=== PATIENT | male | born 1975 | race Caucasian/White ===

== ENCOUNTER → 2024-05-11 06:21 | Day surgery (SDC) | payer OTHER, SELFPAY | LOC: GI 06:21 | PROVIDERS: ATTENDING PHYSICIAN Internal Medicine Gastroenterology | DX: K63.5 Polyp of colon (principal); K57.30 Diverticulosis of large intestine without perforation or abscess without bleeding; D12.8 Benign neoplasm of rectum; R19.4 Change in bowel habit | CPT/HCPCS: 45385; 88305 ==

== ENCOUNTER 2025-08-04 11:02 | Inpatient (IN) | payer OTHER, SELFPAY ==
[2025-08-04] VITALS (17 sets, daily range): BP systolic 122–156; BP diastolic 56–116; BMI 28.6; BMI 28.1; BMI 27.8
--- NOTE | 2025-08-04 00:36 | EDRN ---
Pt had heartburn which turned into tightness in his chest while lying in bed. Pt noted pain in posterior neck and L calf. Symptoms started around [id number]. Chest pain was intermittent and is gone now. Pain has 'slight' pain in posterior neck
now. L calf is dull pain. Pt took Tums which did not help and drank a lot of water. Dinner was turkey with 'all the fixings' and 2 glasses wine. No sob, n/v, fever/chills/cough, abd pain, constipation. Pt said when he went down the steps he
felt dizzy. Pt's adds pt complained of abd pain around 2229 - no abd pain now. Pt had diarrhea yesterday.
--- NOTE | 2025-08-04 00:54 | ED.GENMED ---
History of Present Illness
<Hima Cano PA-C - Last Filed: 08/04/25 02:21>
General
Chief Complaint: Chest Pain
Source: patient
Exam Limitations: none
Time Seen by Provider: 08/04/25 00:43
History of Present Illness
History of Present Illness:
50-year-old male with history of hyperlipidemia presents with onset of chest discomfort this evening. It was after eating dinner. He felt that it was heartburn. He then developed pain in his neck. This was different than his typical heartburn
sensation. Tried drinking water and taking 4 Tums without significant relief. He also noted an unsettled sensation in his stomach. There was no vomiting or diaphoresis. He notes a family history of cardiac disease. No recent extended travel.
No other complaints. He states at the moment he feels somewhat improved
Past History
<Hima Cano PA-C - Last Filed: 08/04/25 02:21>
Past History
ED Past Medical History: None
ED Past Surgical History: None
Social History
Tobacco: Non-smoker
Alcohol: Occasional
Personal:
Living: with family
Phy Exam
<Hima Cano PA-C - Last Filed: 08/04/25 02:21>
Physical Exam
Physical Exam:
General: Well-appearing male no acute respiratory distress
HEENT: Normal cephalic atraumatic
Heart: Regular rate and rhythm
Lungs: Clear no wheeze
Abdomen is soft nontender
Extremities: No cyanosis
Scores
<Eliazar Jeronimo MD - Last Filed: 08/04/25 13:37>
Heart Score for Chest Pain Patients
STEMI patient?: No
History: Slightly or Non-Suspicious
ECG: Normal
Age: >45 - <65 years
Risk Factors: 1 or 2 Risk Factors
Troponin: </= Normal Limit
Heart Score for Chest Pain Patients: 2
Heart Score Risk: 2.5% MACE over next 6 weeks
Course
Miguellt;Hima Cano PA-C - Last Filed: 08/04/25 02:21>
Orders/Labs/Results
Orders:
Orders
08/04/25 00:18
EKG [Electrocardiogram (*1)] Urgent
Reason for Study: Chest Pain
EKG- Treatment ONCE
08/04/25 00:40
Cardiac Monitoring- Treatment ONCE
IV Insert/Care/Rem.- Treatment PRN
O2 Therapy [RESP] Urgent
Titrate/Wean O2 to maintain O2 sat greater than (%): 90
Special Instructions: Maintain sats >/=90%
Pulse Ox/spot Check [RESP] Urgent
Quantity: 1
Special Instructions: ON ROOM AIR
08/04/25 00:47
Complete Blood Count/With Diff Urgent
Comprehensive Metabolic Panel Urgent
Lipase Urgent
Troponin I Urgent
08/04/25 00:53
CR Chest - 2 Views Urgent
Comment:
Reason For Exam: chest pain
08/04/25 01:41
US Abdomen Complete/Upper Urgent
Comment:
Reason For Exam: abdominal pain
08/04/25 02:31
Troponin I Urgent
08/04/25 03:54
Nitroglycerin Sublingual [Nitrostat (Sublingual)] 0.4 mg SL NOW STA
08/04/25 04:07
Hepatitis A IgM Antibody Urgent
Hepatitis B Core Ab, IgM Urgent
Hepatitis B Surface Antibody Urgent
Hepatitis B Surface Antigen Urgent
Hepatitis C Antibody Urgent
08/04/25 Breakfast
Clear Liquid
At Your Request: Full Participation
08/04/25 06:30
Electrocardiogram (*1) Urgent
Reason for Study: Chest Pain
EKG- Treatment ONCE
08/04/25 06:31
Troponin I Urgent
08/04/25 06:52
Aspirin Chewable [Low Strength Aspirin] 324 mg PO NOW STA
08/04/25 06:56
CARDIOLOGY CONSULT Urgent
Consulting Provider: Bryan Adams
Was physician already notified: Yes
Reason for consult: chest pain
Heparin 4,000 units IV NOW STA
Nursing to Place Non Medication Order As Directed
Physician Order: PTT 6 hours after initial start of Heparin infusion
Above order entered?: Yes
08/04/25 07:00
Heparin 40119 Units/250 ml 25,000 units in 250 ml IV PER PROTOCOL
Weight to be used for heparin protocol in kilograms (kg):: 78
Protocol:: Cardiac Tx/Acute Coronary
PTT Goal Range to be used:: PTT 73 to 111 seconds
Order type:: Initial
INITIAL Infusion Dose (UNITS/KG/hr) & then follow protocol:: 12 units/kg/hr
Infusion Dose in UNITS/hr & then follow protocol (UNITS/hr):: 950
INFUSION RATE in mL/hr & then follow protocol (mL/hr):: 9.5
PTT less than or equal to 64 seconds:: Increase rate by 200 units/hr (+ 2 mL/hr)
PTT 64.1 to 72.9 seconds:: Increase rate by 100 units/hr (+ 1 mL/hr)
PTT 73 to 111 seconds:: Target Range. No change in rate.
PTT 111.1 to 130.9 seconds:: Decrease rate by 100 units/hr (- 1 mL/hr)
PTT 131 to 199.9 seconds:: HOLD for 1 hr. Then decrease rate by 200 units/hr (- 2 mL/hr)
PTT greater than or equal to 200 seconds:: HOLD for 2 hrs & Notify Provider. Then decrease by 200 units/hr (-
2 mL/hr)
Lab follow-up:: Each change, PTT q6h until 2 consecutive are therapeutic. Then PTT
daily.
08/04/25 07:01
PTT Urgent
Comment: Obtain baseline before beginning heparin infusion if not already collected
Prothrombin Time Urgent
Comment: ADD ON
08/04/25 07:03
Heparin [id number] Units/250 ml 25,000 units in 250 ml .ROUTE .STK-MED
08/04/25 07:48
Echo 2D MMode Color/Doppler Routine
Reason for Study: Chest pain
08/04/25 09:54
Pantoprazole [Protonix IV] 40 mg IV NOW STA
08/04/25 10:39
Add On- LAB Urgent
Tests Added?: INR
08/04/25 10:42
GASTROINTESTINAL CONSULT Routine
Consulting Provider: Carmelo Merritt
Was physician already notified: Yes
08/04/25 10:53
Admit/Transfer Patient As Directed
Co-Sign Provider:
Level of Care: Inpatient admission
Assign to:: Telemetry
Physician / Group: gris alvarez
Diagnosis: transaminitis/chest pain
Reason for Telemetry: Chest Pain syndromes
Date to Stop Telemetry: 08/06/25
Time to Stop Telemetry: 11:00
Reason for Hospitalization: chest pain
transaminitis
Expected length of stay greater than two midnights?: Yes
ELOS- Estimated Length of Stay in days: 2
I certify the patient meets the requirements for IP care: Yes
PRN Pain Medication Management As Directed
May give lesser potent ordered pain med per pt: Yes
preference::
Protocol:: Medication orders for pain may be administered in a
manner that supports deferring to patient preference
when the pt is:
- Requesting an ordered lesser potent pain medication.
Least to most potent pain medications are defined
as: acetaminophen < NSAID < tramadol < opioids
(morphine, oxycodone, hydromorphone).
- Requesting a lesser dose of the same medication IF
ORDERED.
- Requesting a less intrusive route of administration
if both routes are prescribed by the provider (PO <
IV).
08/04/25 10:55
Code Status As Directed
Resuscitation Status: Full Code
08/04/25 12:06
Bisacodyl [Dulcolax] 10 mg RECTAL [id number] PRN
Docusate W/Senna [Senokot-S] 1 tablet PO BIDPRN PRN
Polyethylene Glycol Powder [Miralax] 17 grams PO DAILYPRN PRN
08/04/25 12:06
Activity As Directed
Activity Level: As Tolerated
Vital Signs As Directed
Frequency: Per unit guidelines
DX Deep Vein Thrombosis Video Routine
08/05/25 06:00
Complete Blood Count/No Diff IN AM
Comprehensive Metabolic Panel IN AM
08/06/25 11:00
DC Protocol for Telemetry ONCE
Abnormal Lab Results
08/04/25
00:47
RDW 11.1 L %
(11.5-14.5)
Abs Immat Gran (auto) 0.1 H 10^3/uL
(0-0.05)
Immature Gran % 1.1 H %
(0-0.5)
Glucose 102 H mg/dl
(70-99)
Calcium 10.4 H mg/dl
(8.4-10.2)
AST 529 H* U/L
(17-59)
ALT 288 H U/L
(0-50)
08/04/25 00:47
08/04/25 00:47
Vital Signs
Initial and Last Documented VS:
Initial Vital Signs
Temp Pulse Resp BP Pulse Ox
97.7 F 96 18 156/116 96
08/04/25 00:12 08/04/25 00:12 08/04/25 00:12 08/04/25 00:12 08/04/25 00:12
Last Documented Vital Signs
Temp Pulse Resp BP Pulse Ox
98 F 66 17 139/95 100
08/04/25 12:35 08/04/25 12:35 08/04/25 12:35 08/04/25 12:35 08/04/25 12:35
<Eliazar Jeronimo MD - Last Filed: 08/04/25 13:37>
Orders/Labs/Results
Orders:
Orders
08/04/25 00:18
EKG [Electrocardiogram (*1)] Urgent
Reason for Study: Chest Pain
EKG- Treatment ONCE
08/04/25 00:40
Cardiac Monitoring- Treatment ONCE
IV Insert/Care/Rem.- Treatment PRN
O2 Therapy [RESP] Urgent
Titrate/Wean O2 to maintain O2 sat greater than (%): 90
Special Instructions: Maintain sats >/=90%
Pulse Ox/spot Check [RESP] Urgent
Quantity: 1
Special Instructions: ON ROOM AIR
08/04/25 00:47
Complete Blood Count/With Diff Urgent
Comprehensive Metabolic Panel Urgent
Lipase Urgent
Troponin I Urgent
08/04/25 00:53
CR Chest - 2 Views Urgent
Comment:
Reason For Exam: chest pain
08/04/25 01:41
US Abdomen Complete/Upper Urgent
Comment:
Reason For Exam: abdominal pain
08/04/25 02:31
Troponin I Urgent
08/04/25 03:54
Nitroglycerin Sublingual [Nitrostat (Sublingual)] 0.4 mg SL NOW STA
08/04/25 04:07
Hepatitis A IgM Antibody Urgent
Hepatitis B Core Ab, IgM Urgent
Hepatitis B Surface Antibody Urgent
Hepatitis B Surface Antigen Urgent
Hepatitis C Antibody Urgent
08/04/25 Breakfast
Clear Liquid
At Your Request: Full Participation
08/04/25 06:30
Electrocardiogram (*1) Urgent
Reason for Study: Chest Pain
EKG- Treatment ONCE
08/04/25 06:31
Troponin I Urgent
08/04/25 06:52
Aspirin Chewable [Low Strength Aspirin] 324 mg PO NOW STA
08/04/25 06:56
CARDIOLOGY CONSULT Urgent
Consulting Provider: Bryan Adams
Was physician already notified: Yes
Reason for consult: chest pain
Heparin 4,000 units IV NOW STA
Nursing to Place Non Medication Order As Directed
Physician Order: PTT 6 hours after initial start of Heparin infusion
Above order entered?: Yes
08/04/25 07:00
Heparin [id number] Units/250 ml 25,000 units in 250 ml IV PER PROTOCOL
Weight to be used for heparin protocol in kilograms (kg):: 78
Protocol:: Cardiac Tx/Acute Coronary
PTT Goal Range to be used:: PTT 73 to 111 seconds
Order type:: Initial
INITIAL Infusion Dose (UNITS/KG/hr) & then follow protocol:: 12 units/kg/hr
Infusion Dose in UNITS/hr & then follow protocol (UNITS/hr):: 950
INFUSION RATE in mL/hr & then follow protocol (mL/hr):: 9.5
PTT less than or equal to 64 seconds:: Increase rate by 200 units/hr (+ 2 mL/hr)
PTT 64.1 to 72.9 seconds:: Increase rate by 100 units/hr (+ 1 mL/hr)
PTT 73 to 111 seconds:: Target Range. No change in rate.
PTT 111.1 to 130.9 seconds:: Decrease rate by 100 units/hr (- 1 mL/hr)
PTT 131 to 199.9 seconds:: HOLD for 1 hr. Then decrease rate by 200 units/hr (- 2 mL/hr)
PTT greater than or equal to 200 seconds:: HOLD for 2 hrs & Notify Provider. Then decrease by 200 units/hr (-
2 mL/hr)
Lab follow-up:: Each change, PTT q6h until 2 consecutive are therapeutic. Then PTT
daily.
08/04/25 07:01
PTT Urgent
Comment: Obtain baseline before beginning heparin infusion if not already collected
Prothrombin Time Urgent
Comment: ADD ON
08/04/25 07:03
Heparin 53544 Units/250 ml 25,000 units in 250 ml .ROUTE .STK-MED
08/04/25 07:48
Echo 2D MMode Color/Doppler Routine
Reason for Study: Chest pain
08/04/25 09:54
Pantoprazole [Protonix IV] 40 mg IV NOW STA
08/04/25 10:39
Add On- LAB Urgent
Tests Added?: INR
08/04/25 10:42
GASTROINTESTINAL CONSULT Routine
Consulting Provider: Carmelo Merritt
Was physician already notified: Yes
08/04/25 10:53
Admit/Transfer Patient As Directed
Co-Sign Provider:
Level of Care: Inpatient admission
Assign to:: Telemetry
Physician / Group: gris alvarez
Diagnosis: transaminitis/chest pain
Reason for Telemetry: Chest Pain syndromes
Date to Stop Telemetry: 08/06/25
Time to Stop Telemetry: 11:00
Reason for Hospitalization: chest pain
transaminitis
Expected length of stay greater than two midnights?: Yes
ELOS- Estimated Length of Stay in days: 2
I certify the patient meets the requirements for IP care: Yes
PRN Pain Medication Management As Directed
May give lesser potent ordered pain med per pt: Yes
preference::
Protocol:: Medication orders for pain may be administered in a
manner that supports deferring to patient preference
when the pt is:
- Requesting an ordered lesser potent pain medication.
Least to most potent pain medications are defined
as: acetaminophen < NSAID < tramadol < opioids
(morphine, oxycodone, hydromorphone).
- Requesting a lesser dose of the same medication IF
ORDERED.
- Requesting a less intrusive route of administration
if both routes are prescribed by the provider (PO <
IV).
08/04/25 10:55
Code Status As Directed
Resuscitation Status: Full Code
08/04/25 12:06
Bisacodyl [Dulcolax] 10 mg RECTAL [id number] PRN
Docusate W/Senna [Senokot-S] 1 tablet PO BIDPRN PRN
Polyethylene Glycol Powder [Miralax] 17 grams PO DAILYPRN PRN
08/04/25 12:06
Activity As Directed
Activity Level: As Tolerated
Vital Signs As Directed
Frequency: Per unit guidelines
DX Deep Vein Thrombosis Video Routine
08/05/25 06:00
Complete Blood Count/No Diff IN AM
Comprehensive Metabolic Panel IN AM
08/06/25 11:00
DC Protocol for Telemetry ONCE
Abnormal Lab Results
08/04/25
00:47
RDW 11.1 L %
(11.5-14.5)
Abs Immat Gran (auto) 0.1 H 10^3/uL
(0-0.05)
Immature Gran % 1.1 H %
(0-0.5)
Glucose 102 H mg/dl
(70-99)
Calcium 10.4 H mg/dl
(8.4-10.2)
AST 529 H* U/L
(17-59)
ALT 288 H U/L
(0-50)
08/04/25 00:47
08/04/25 00:47
Vital Signs
Initial and Last Documented VS:
Initial Vital Signs
Temp Pulse Resp BP Pulse Ox
97.7 F 96 18 156/116 96
08/04/25 00:12 08/04/25 00:12 08/04/25 00:12 08/04/25 00:12 08/04/25 00:12
Last Documented Vital Signs
Temp Pulse Resp BP Pulse Ox
98 F 66 17 139/95 100
08/04/25 12:35 08/04/25 12:35 08/04/25 12:35 08/04/25 12:35 08/04/25 12:35
<Itzel Butler, DO - Last Filed: 08/04/25 09:54>
Orders/Labs/Results
Orders:
Orders
08/04/25 00:18
EKG [Electrocardiogram (*1)] Urgent
Reason for Study: Chest Pain
EKG- Treatment ONCE
08/04/25 00:40
Cardiac Monitoring- Treatment ONCE
IV Insert/Care/Rem.- Treatment PRN
O2 Therapy [RESP] Urgent
Titrate/Wean O2 to maintain O2 sat greater than (%): 90
Special Instructions: Maintain sats >/=90%
Pulse Ox/spot Check [RESP] Urgent
Quantity: 1
Special Instructions: ON ROOM AIR
08/04/25 00:47
Complete Blood Count/With Diff Urgent
Comprehensive Metabolic Panel Urgent
Lipase Urgent
Troponin I Urgent
08/04/25 00:53
CR Chest - 2 Views Urgent
Comment:
Reason For Exam: chest pain
08/04/25 01:41
US Abdomen Complete/Upper Urgent
Comment:
Reason For Exam: abdominal pain
08/04/25 02:31
Troponin I Urgent
08/04/25 03:54
Nitroglycerin Sublingual [Nitrostat (Sublingual)] 0.4 mg SL NOW STA
08/04/25 04:07
Hepatitis A IgM Antibody Urgent
Hepatitis B Core Ab, IgM Urgent
Hepatitis B Surface Antibody Urgent
Hepatitis B Surface Antigen Urgent
Hepatitis C Antibody Urgent
08/04/25 Breakfast
Clear Liquid
At Your Request: Full Participation
08/04/25 06:30
Electrocardiogram (*1) Urgent
Reason for Study: Chest Pain
EKG- Treatment ONCE
08/04/25 06:31
Troponin I Urgent
08/04/25 06:52
Aspirin Chewable [Low Strength Aspirin] 324 mg PO NOW STA
08/04/25 06:56
CARDIOLOGY CONSULT Urgent
Consulting Provider: Bryan Adams
Was physician already notified: Yes
Reason for consult: chest pain
Heparin 4,000 units IV NOW STA
Nursing to Place Non Medication Order As Directed
Physician Order: PTT 6 hours after initial start of Heparin infusion
Above order entered?: Yes
08/04/25 07:00
Heparin [id number] Units/250 ml 25,000 units in 250 ml IV PER PROTOCOL
Weight to be used for heparin protocol in kilograms (kg):: 78
Protocol:: Cardiac Tx/Acute Coronary
PTT Goal Range to be used:: PTT 73 to 111 seconds
Order type:: Initial
INITIAL Infusion Dose (UNITS/KG/hr) & then follow protocol:: 12 units/kg/hr
Infusion Dose in UNITS/hr & then follow protocol (UNITS/hr):: 950
INFUSION RATE in mL/hr & then follow protocol (mL/hr):: 9.5
PTT less than or equal to 64 seconds:: Increase rate by 200 units/hr (+ 2 mL/hr)
PTT 64.1 to 72.9 seconds:: Increase rate by 100 units/hr (+ 1 mL/hr)
PTT 73 to 111 seconds:: Target Range. No change in rate.
PTT 111.1 to 130.9 seconds:: Decrease rate by 100 units/hr (- 1 mL/hr)
PTT 131 to 199.9 seconds:: HOLD for 1 hr. Then decrease rate by 200 units/hr (- 2 mL/hr)
PTT greater than or equal to 200 seconds:: HOLD for 2 hrs & Notify Provider. Then decrease by 200 units/hr (-
2 mL/hr)
Lab follow-up:: Each change, PTT q6h until 2 consecutive are therapeutic. Then PTT
daily.
08/04/25 07:01
PTT Urgent
Comment: Obtain baseline before beginning heparin infusion if not already collected
Prothrombin Time Urgent
Comment: ADD ON
08/04/25 07:03
Heparin [id number] Units/250 ml 25,000 units in 250 ml .ROUTE .STK-MED
08/04/25 07:48
Echo 2D MMode Color/Doppler Routine
Reason for Study: Chest pain
08/04/25 09:54
Pantoprazole [Protonix IV] 40 mg IV NOW STA
08/04/25 10:39
Add On- LAB Urgent
Tests Added?: INR
08/04/25 10:42
GASTROINTESTINAL CONSULT Routine
Consulting Provider: Carmelo Merritt
Was physician already notified: Yes
08/04/25 10:53
Admit/Transfer Patient As Directed
Co-Sign Provider:
Level of Care: Inpatient admission
Assign to:: Telemetry
Physician / Group: gris alvarez
Diagnosis: transaminitis/chest pain
Reason for Telemetry: Chest Pain syndromes
Date to Stop Telemetry: 08/06/25
Time to Stop Telemetry: 11:00
Reason for Hospitalization: chest pain
transaminitis
Expected length of stay greater than two midnights?: Yes
ELOS- Estimated Length of Stay in days: 2
I certify the patient meets the requirements for IP care: Yes
PRN Pain Medication Management As Directed
May give lesser potent ordered pain med per pt: Yes
preference::
Protocol:: Medication orders for pain may be administered in a
manner that supports deferring to patient preference
when the pt is:
- Requesting an ordered lesser potent pain medication.
Least to most potent pain medications are defined
as: acetaminophen < NSAID < tramadol < opioids
(morphine, oxycodone, hydromorphone).
- Requesting a lesser dose of the same medication IF
ORDERED.
- Requesting a less intrusive route of administration
if both routes are prescribed by the provider (PO <
IV).
08/04/25 10:55
Code Status As Directed
Resuscitation Status: Full Code
08/04/25 12:06
Bisacodyl [Dulcolax] 10 mg RECTAL [id number] PRN
Docusate W/Senna [Senokot-S] 1 tablet PO BIDPRN PRN
Polyethylene Glycol Powder [Miralax] 17 grams PO DAILYPRN PRN
08/04/25 12:06
Activity As Directed
Activity Level: As Tolerated
Vital Signs As Directed
Frequency: Per unit guidelines
DX Deep Vein Thrombosis Video Routine
08/05/25 06:00
Complete Blood Count/No Diff IN AM
Comprehensive Metabolic Panel IN AM
08/06/25 11:00
DC Protocol for Telemetry ONCE
Abnormal Lab Results
08/04/25
00:47
RDW 11.1 L %
(11.5-14.5)
Abs Immat Gran (auto) 0.1 H 10^3/uL
(0-0.05)
Immature Gran % 1.1 H %
(0-0.5)
Glucose 102 H mg/dl
(70-99)
Calcium 10.4 H mg/dl
(8.4-10.2)
AST 529 H* U/L
(17-59)
ALT 288 H U/L
(0-50)
08/04/25 00:47
08/04/25 00:47
Vital Signs
Initial and Last Documented VS:
Initial Vital Signs
Temp Pulse Resp BP Pulse Ox
97.7 F 96 18 156/116 96
08/04/25 00:12 08/04/25 00:12 08/04/25 00:12 08/04/25 00:12 08/04/25 00:12
Last Documented Vital Signs
Temp Pulse Resp BP Pulse Ox
98 F 66 17 139/95 100
08/04/25 12:35 08/04/25 12:35 08/04/25 12:35 08/04/25 12:35 08/04/25 12:35
<Hima Cano PA-C - Last Filed: 08/04/25 02:21>
MDM/Problems Addressed
Differential Diagnosis Includes:
Chest pain. Consider ACS versus reflux. Symptoms are improving. Unlikely to be PE or dissection.
EKG shows sinus rhythm without ischemic changes. Will check labs including troponin. Chest x-ray pending
<Hima Cano PA-C - Last Filed: 08/04/25 02:21>
*Pulse Oximetry
SaO2: 96
Oxygen Mode of Delivery: Room air
<Eliazar Jeronimo MD - Last Filed: 08/04/25 13:37>
*Pulse Oximetry
Patient hypoxic: no
*Critical Care Note
Total Time (30-74mins, 75-104mins- exclusive of procedures): Not Applicable
<Hima Cano PA-C - Last Filed: 08/04/25 02:21>
Update Note
Update Note:
LFTs elevated. Will order ultrasound of abdomen. Repeat troponin pending
<Itzel Butler DO - Last Filed: 08/04/25 09:54>
Update Note
Update Note:
LFTs elevated. Will order ultrasound of abdomen. Repeat troponin pending
Attending Sign Out Note (Itzel Butler DO)
7:30 -assuming care of patient, 50-year-old male with history of hyperlipidemia presenting to the emergency department for burning sensation in his chest. Notes started after eating dinner last evening. No personal cardiac history, however strong
family cardiac history. Reassuring workup thus far in the emergency department with nonischemic EKG, negative troponin x 2. Thought for likely reflux etiology. Noted to have some elevation of LFTs, some right upper quadrant ultrasound obtained,
unremarkable. Chest x-ray without acute cardiopulmonary disease. However given patient's age, risk factors, family history, cardiology consulted and will evaluate in the emergency department for ultimate disposition.
09:50 -cardiology did see and evaluate patient, less suspicious for cardiac pathology. They suspect more GI, given acute bump in liver enzymes. Recommending admission for GI consultation. They will also obtain echocardiogram. Patient agreeable
to plan.
ED Attending Note
<Hima Cano PA-C - Last Filed: 08/04/25 02:21>
-
Portions of this chart may have been created with voice recognition software.� Occasional wrong word or��sound alike� substitutions may have occurred due to the inherent limitations of voice recognition software.
<Eliazar Jeronimo MD - Last Filed: 08/04/25 13:37>
ED Attending Note
Patient seen and examined by attending physician: Yes
ED Attending Note:
Patient with history of hypercholesterolemia, presents to ED secondary to persistent chest pain, and approximately 2 hours after having had thanksgiving dinner consisting of turkey and slight dizziness. Patient does also admit to having had couple
glass of wine, which is not unusual for the patient. Chest pain described as burning sensation, with radiation to neck. Patient initially thought he was experiencing reflux symptoms, which he has had previously. Patient proceeded to drink water,
walk around, and take Tums, which has worked in the past. Unfortunately, his chest burning sensation continued, prompting visit to ED. Denies dizziness. Denies diaphoresis. Patient reports nausea sensation without vomiting. Denies back pain.
Denies leg pain or swelling. Denies recent travel or surgery. Denies smoking. Of note, there is strong family history of heart disease, with multiple family numbers having had heart attack in early 50s.
Physical Exam
General: no apparent distress, not acutely ill. afebrile
Head: nc/at. eomi
Neck: supple. normal range of motion.
Heart: s1/s2 regular rate and rhythm
Lungs: no acute respiratory distress. clear bilaterally
Abdomen: normal bowel sounds. not tender.
Neuro: alert and oriented x 3. no focal neurological deficits
Skin: no rash
Psychiatric: well kept. interactive and cooperative
Extremities: no edema. no calf tenderness.
Patient with minimal troponin noted, without acute EKG changes. Patient given nitroglycerin sublingual tablet without improvement in symptoms. In light of patient's strong family history heart disease, along with ongoing symptoms, will consult
cardiology for an evaluation.
Discussed with on-call cardiology, Dr. Adams, who recommends patient to be started on aspirin along with heparin protocol. Will come and evaluate patient in ED.
Discharge Plan
Departure
Patient Disposition: Admit
Date of Disposition: 08/04/25
Time of Disposition: 09:57
Presentation/result/management discussed w/ accepting MD/DO: Hospitalist
Patient with high blood pressure during this ER visit?: No
Condition: Fair
Discharge Problem:
Chest pain, mid sternal, Transaminitis
Interventions
Interventions:
*Risk Screen - Suicide Last Done: 08/04/25 00:14
*General Assessment Last Done: 08/04/25 00:14
*Neglect/Abuse Screening Last Done: 08/04/25 00:14
*ED- Fall Risk Assessment Last Done: 08/04/25 00:14
*ED COVID-19 Vaccine History Last Done: 08/04/25 00:14
*ED Influenza Vaccine History Last Done: 08/04/25 00:14
*Nursing Disposition Last Done: 08/04/25 12:06
ED- Cardiac Assessment Last Done: 08/04/25 07:21
Discharge Date and Time
Discharge Date/Time: 08/04/25 12:07
[2025-08-04 00:55] LABS: Hematocrit 42.7 % (39.0-52.0); Hemoglobin 15.5 g/dL (13.0-18.0); Mean Corp Hgb Conc. 36.3 g/dL (33.0-37.0); Mean Corpuscular Volume 85.1 fL (80.0-94.0); Nucleated Red Blood Cells % 0 % (-); Platelet Count 183 10^3/uL (130-400); Red Cell Dist. Width 11.1 % (11.5-14.5)
[2025-08-04 01:27] LABS: Troponin I 0.016 ng/ml
[2025-08-04 01:33] LABS: ALT (SGPT) 288 U/L (0-50); AST (SGOT) 529 U/L (17-59); Albumin 4.6 g/dl (3.5-5.0); Alkaline Phosphatase 90 U/L (38-126); Blood Urea Nitrogen 19 mg/dl (9-20); Calcium 10.4 mg/dl (8.4-10.2); Carbon Dioxide 28 mmol/L (22-30); Chloride 105 mmol/L (98-107); Estimated Creatinine Clearance 84 ml/min; Glucose 102 mg/dl (70-99); Lipase 263 U/L (23-300); Potassium 4.0 mmol/L (3.5-5.1); Sodium 138 mmol/L (135-145); Total Protein 7.4 g/dl (6.3-8.2); eGFR > 60.00
[2025-08-04 03:12] LABS: Troponin I 0.018 ng/ml
[2025-08-04] MEDS: NITROSTAT (SUBLINGUAL) 0.4 MG SL (04:12)
[2025-08-04 05:29] LABS: Hepatitis B Surface Antigen Negative (Negative)
[2025-08-04 05:46] LABS: Hepatitis C Antibody Negative (Negative)
[2025-08-04] MEDS: LOW STRENGTH ASPIRIN 324 MG PO (06:57)
--- NOTE | 2025-08-04 07:03 | EDRN ---
Called pharmacy to verify heparin
[2025-08-04] MEDS: HEPARIN 4000 UNITS IV (07:07)
[2025-08-04] MEDS: HEPARIN 25000 UNITS/250 ML IV (07:12)
[2025-08-04 07:40] LABS: APTT 25.1 Sec (23.4-35.0)
[2025-08-04 07:51] LABS: Troponin I 0.016 ng/ml
--- NOTE | 2025-08-04 08:58 | CON.CAR ---
Addendum entered and electronically signed by Bryan Adams MD 08/04/25 09:54:
I reviewed and agree with the note by NADEEN and it accurately reflects our care.
I saw and evaluated the patient, and I provided the substantive portion of the medical decision making. My assessment and plan is below:
50-year-old man with hyperlipidemia and family history of coronary artery disease who presents with epigastric discomfort. Patient reports that for the past week he has had abdominal distention and diarrhea. Yesterday developed what felt like
heartburn. Took Tums but it did not fully resolve and then started radiating to his neck and bilateral legs. Came to the ER and epigastric discomfort is still present. He is a never smoker. Drinks 2 alcoholic drinks daily. He is fairly active
and denies dyspnea or chest discomfort with exertion.
Physical exam: RRR, no murmurs, clear lungs, no lower extremity edema, abdomen nontender to palpation
Labs notable for troponin 0.016 -> 0.018 -> 0.016, AST/ALT 529/288
ECG: NSR, within normal limits
Epigastric discomfort: Suspect noncardiac etiology as it has been ongoing for almost 12 hours with negative troponin x 3, completely normal ECG, and no improvement with SL nitro. Follow-up echocardiogram. Stop trending troponins. Should have
outpatient stress testing. Recommend GI evaluation of transaminitis.
Original Note:
Consultation
Consultation Request
Date/Time Consultation Requested: 08/04/2025 06:00
Date/Time Consultation Performed: 08/04/2025 08:45
Requesting Provider: Hima Cano PA-C
Performing Provider: NADEEN Ybarra for Dr. Adams
Reason for Consultation: Chest pain
Medical History
-
Chief Complaint: Chest pain
History of Present Illness:
Cristian De La Rosa is a 50-year-old male with hypercholesterolemia who presented to the emergency department chest pain. It occurred after eating dinner. Initially it felt like heartburn. Then it radiated into his neck and into his leg. He did not
achieve any relief by taking Tums. No vomiting. No diaphoresis. No shortness of breath. He still has 'something' in his chest but the significant event lasted approximately [address] abnormality. Notable labs include a peak
troponin of 0.018, AST 529, & ALT 288.
Past Medical History
Past Medical History: Hypercholesterolemia
Past Surgical History: None
Social History
Tobacco: Non-Smoker
Alcohol: Occasional (2 most days of the week)
Personal:
Living: With Family
Family History
Family History: CAD (Father with AR at age 55)
Allergies / Home Medications
Allergy/AdvReac Type Severity Reaction Status Date / Time
No Known Allergies Allergy Verified 08/04/25 00:57
�Medication �Instructions �Recorded �Confirmed �Type
omega-3 acid ethyl esters 1 gram 1 g PO BID Supplement 08/04/25 08/04/25 History
capsule
rosuvastatin 20 mg tablet (Crestor) 20 mg PO QPM High Cholesterol 08/04/25 08/04/25 History
therapeutic multivitamin 1 tab PO DAILY Supplement 08/04/25 08/04/25 History
Review of Systems
-
History Source: Patient
All other systems: Negative unless noted
Constitutional: No Symptoms
EENT: No Symptoms
Respiratory: No Symptoms
Cardiac: No Symptoms
Abdomen/GI: Abdominal Pain
: No Symptoms
Musculoskeletal: No Symptoms
Skin: No Symptoms
Neurological: No Symptoms
Endocrine: No Symptoms
Hematologic/Lymphatic: No Symptoms
Physical Exam
Vital Signs
Temp Pulse Resp BP Pulse Ox
97.7 F 58 15 122/93 96
08/04/25 00:12 08/04/25 08:00 08/04/25 07:28 08/04/25 08:00 08/04/25 07:28
Lab Results
08/04/25 00:47
08/04/25 00:47
Troponin I 0.016 ng/ml 08/04/25 06:31
Physical Exam
General: Well Developed, Well Nourished, No Apparent Distress and Comfortable
HEENT: Normocephalic, Anicteric and Moist Mucous Membranes
Respiratory: Clear and Non Labored Respirations
Cardiac: S1/S2
Breast: Deferred by me
GI: Soft, Non Tender, Non Distended and Normal Bowel Sounds
Rectal: Deferred by Provider
Genito-urinary: No Costovertebral Tender
Musculoskeletal: No Clubbing
Skin: Warm and Dry
Neuro: AO x 3
Hematologic/Lymphatic: No Lymphadenopathy
Psych: Calm
Impression / Plan
-
I/P: 50M with hypercholesterolemia who presented to the emergency department chest pain/epigastric pain.
Epigastric pain
- Troponin: 0.016, 0.018, 0.016 without EKG abnormality
- Echocardiogram today
Transaminitis
- AST 529, ALT 288, with associated diarrhea
Hypercholesterolemia, would recommend hold with elevated LFTs
Data Reviewed
-
EKG: Report Reviewed by me
Radiology: Report Reviewed by me
Labs: Labs Reviewed by me
Old Records: Reviewed
[2025-08-04] MEDS: PROTONIX IV 40 MG IV (10:23)
[2025-08-04 10:52] LABS: INR 0.93; PT 12.6 Sec (11.4-14.6)
--- NOTE | 2025-08-04 11:37 | CON.GI ---
Addendum entered and electronically signed by Carmelo Merritt MD 08/04/25 12:46:
I saw and examined the patient.
The PAYABLE MANAGER or PA's note was reviewed and I agree with the note.
Comment: 50yo male presents with chest/epigastric pain couple hours after eating dinner last night. Denies n/v, but has had diarrhea last couple days, which he typically alternates between with constipation at other times chronically. LFTs
elevated on admission AST 529, ALT 288, TB 0.9, AP 90. He drinks 2-3 glasses wine/beer most days. US shows normal GB and bile ducts. Colonoscopy last year showed diverticulosis and two small polyps. Hep A IgM negative, Hep B surface Ag negative,
Hep C ab negative.
REC:
Check MRI/MRCP to rule out bile duct stone as possible cause for LFTs and pain
Trend LFTs
Check stool c diff, culture with recent diarrhea
Advised cutting back on EtOH.
PPI for heartburn symptoms
Will follow
Original Note:
Consultation
-
Date/Time Consultation Requested: 08/04/25 1045
Date/Time Consultation Performed: 08/04/25 1130
Requesting Provider: Murray Peters MD
Performing Provider: NADEEN Quintanilla, Carmelo Merritt MD
Reason for Consultation: increased LFT's, chest pain, bloating
Medical History
Chief Complaint / HPI
Chief Complaint: bloating, chest/neck pain
History of Present Illness:
Pt is a 50yo with hx colon polyps, diverticulosis, hypercholesterolemia with statin use with onset of chest/neck pain with bloating several hours after eating thanksgiving dinner. On admission noted with normal CBC with bili 0.9, AST 529, ALT
288, alk phos 90, calcium 10.4, with normal lipase and peak troponin 0.018. Hepatis panel neg. He has been seen by cardiology with suspected non cardiac etiology and asked to see for GI cause. Pt did completed imaging with CXR with no acute
cardiopulmonary process and US with no evidence of cholelithiasis, gallbladder wall thickening or biliary tract dilatation. Negative sonographic Zimmerman's sign. Pancreas significantly obscured, most likely by overlying bowel gas. Last LFT's in [facility]
2018 normal.
In review with patient he admits to onset of symptoms several hours after thanksgiving dinner on 08/03. He does also admits to some chronic bowel issue with no stool for several days then diarrhea. He completed colonoscopy in 2023 with HP and
TA polyp and diverticulosis and has consulted with a prepper without improvement of symptoms. He admits to some GERD symptoms and wt gain with bloating but otherwise denies dysphagia, , nausea, vomiting, or bleeding. No hx EGD in past. No
NSAID use. + ETOH use 2-3 glasses of wine about 5 days per week. Had recent travel to [place], no recent eating out or sick contacts.
Past Medical History
Past Medical History: Hypercholesterolemia and Other (colon polyps, diverticulosis, )
Social History
Alcohol: Daily (2-3 glasses about 5 days per week)
Drug: None
Personal:
Living: With Family
Employment: Employed
Family History
Family History: Other (no family hx GI issues , father CAD)
Allergies / Home Medications
Allergy/AdvReac Type Severity Reaction Status Date / Time
No Known Allergies Allergy Verified 08/04/25 00:57
�Medication �Instructions �Recorded
omega-3 acid ethyl esters 1 gram 1 g PO BID Supplement 08/04/25
capsule
rosuvastatin 20 mg tablet (Crestor) 20 mg PO QPM High Cholesterol 08/04/25
therapeutic multivitamin 1 tab PO DAILY Supplement 08/04/25
Review of Systems
-
History Source: Patient and Family
Constitutional: Reports Weight Gain ( 12 lbs )
EENT: Reports No Symptoms
Respiratory: Reports No Symptoms
Cardiac: Reports Chest Pain
Abdomen/GI: Reports Diarrhea, Constipated and Other (bloating )
: Reports No Symptoms
Musculoskeletal: Reports Other (neck pain )
Skin: Reports No Symptoms
Neurological: Reports Dizzy
Endocrine: Reports No Symptoms
Hematologic/Lymphatic: Reports No Symptoms
Vital Signs
Temp Pulse Resp BP Pulse Ox
97.7 F 61 15 130/99 96
08/04/25 00:12 08/04/25 11:00 08/04/25 07:28 08/04/25 11:00 08/04/25 07:28
Physical Exam
Exam
General: Well Developed, Well Nourished and No Apparent Distress
HEENT: Normocephalic and Anicteric
Respiratory: Clear
Cardiac: Regular Rhythm
GI: Soft, Non Tender and Distended (mild )
Musculoskeletal: No Clubbing and No Cyanosis
Skin: Warm and Dry
Neuro: Awake, Alert and AO x 3
Psych: Calm
Results
WBC 6.2 10^3/uL (4.8-10.8) 08/04/25 00:47
Hgb 15.5 g/dL (13.0-18.0) 08/04/25 00:47
Hct 42.7 % (39.0-52.0) 08/04/25 00:47
MCV 85.1 fL (80.0-94.0) 08/04/25 00:47
Plt Count 183 10^3/uL (130-400) 08/04/25 00:47
Absolute Neuts (auto) 3.3 10^3/uL (1.4-6.5) 08/04/25 00:47
PT Cancelled 08/04/25 10:35
INR Cancelled 08/04/25 10:35
APTT 25.1 Sec (23.4-35.0) 08/04/25 07:01
Sodium 138 mmol/L (135-145) 08/04/25 00:47
Potassium 4.0 mmol/L (3.5-5.1) 08/04/25 00:47
Chloride 105 mmol/L (98-107) 08/04/25 00:47
Carbon Dioxide 28 mmol/L (22-30) 08/04/25 00:47
BUN 19 mg/dl (9-20) 08/04/25 00:47
Creatinine 0.9 mg/dL (0.7-1.3) 08/04/25 00:47
Calcium 10.4 mg/dl (8.4-10.2) H 08/04/25 00:47
Total Bilirubin 0.9 mg/dl (0.2-1.3) 08/04/25 00:47
AST 529 U/L (17-59) H* 08/04/25 00:47
ALT 288 U/L (0-50) H 08/04/25 00:47
Alkaline Phosphatase 90 U/L (38-126) 08/04/25 00:47
Lipase 263 U/L (23-300) 08/04/25 00:47
Hepatitis A IgM Ab Negative (Negative) 08/04/25 04:07
Hep Bs Antibody Negative 08/04/25 04:07
Hep B Core IgM Ab Negative (Negative) 08/04/25 04:07
Hepatitis C Antibody Negative (Negative) 08/04/25 04:07
Diagnostic Image Results:
08/04/25 US Abdomen Complete/Upper
IMPRESSION: No evidence of cholelithiasis, gallbladder wall thickening or biliary tract dilatation. Negative sonographic Zimmerman's sign.
Pancreas significantly obscured, most likely by overlying bowel gas.
08/04/25 CXR
No acute cardiopulmonary process
Prior GI Procedures:
EGD: none
Colonoscopy: [facility]- good prep to TI - Diverticulosis in the sigmoid colon.
- One 3 mm polyp in the descending colon, removed with
a cold snare. Resected and retrieved.
- One 5 mm polyp in the rectum, removed with a cold
snare. Resected and retrieved.
bx Descending colon HP polyp, colono rectum TA
Assessment / Plan
-
Pt is a 50yo with hx colon polyps, diverticulosis, hypercholesterolemia with statin use with onset of chest/neck pain with bloating several hours after eating thanksgiving dinner. On admission noted with normal CBC with bili 0.9, AST 529, ALT
288, alk phos 90, calcium 10.4, with normal lipase and peak troponin 0.018. Hepatis panel neg. He has been seen by cardiology with suspected non cardiac etiology and asked to see for GI cause. Pt did completed imaging with CXR with no acute
cardiopulmonary process and US with no evidence of cholelithiasis, gallbladder wall thickening or biliary tract dilatation. Negative sonographic Zimmerman's sign. Pancreas significantly obscured, most likely by overlying bowel gas. Last LFT's in [facility]
2019 normal. In review with patient he admits to some chronic bowel issue with no stool for several days then diarrhea. He completed colonoscopy in 2023 with HP and TA polyp and diverticulosis and has consulted with a prepper without improvement
of symptoms. He admits to some GERD symptoms and wt gain with bloating but otherwise denies dysphagia, nausea, vomiting, or bleeding. No hx EGD in past. No NSAID use. + ETOH use 2-3 glasses of wine about 5 days per week.
-onset of chest/neck pain with abdominal bloating
-increased transaminase
-hx chronic alternating diarrhea and constipation
-ETOH use 2-3 drinks about 5 days per week
-hypercholesterolemia on daily statin
-hx colon polyps, diverticulosis
PLAN
etiology of pain with elevated LFT's unclear -- related to biliary etiology, gastroenteritis, vs other s/p cardiac etiology ruled out
plan for MRI/ MRCP
trend labs
hepatitis panel neg
discussed ETOH abstinence
cont PPI daily
with current loose stool add stool studies and celiac panel
OP follow up with Dr. Meneses
family updated at bedside
-
-
Thank you for consultation and allowing me to participate in the patient's care. Please call the academic interventionist GI physician during the after hours with any questions or concerns.
--- NOTE | 2025-08-04 11:59 | CM ---
Chart reviewed and spoke with patient at ED bedside
Lives with in [address] [place]
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
no DME
PCP DR. Juancho Patel
RX plan yes
Pharmacy [facility] in [place]
no hx of VN nor SNF
DCP is to go home with no needs
Family can drive him home
CM will continue to follow up for any dcp needs
--- NOTE | 2025-08-04 12:20 | HPS.HSE ---
Family Physician
-
Family Physician: Juancho Patel
Chief Complaint
-
epigastric discomfort
History of Present Illness
50 M no significant hx presenting with midsternal chest discomfort/epigastric with associated abdominal distention and intermittent diarrhea with the last diarrheal episode being couple of days ago. Decribes the chest discomfort as 'something
pressing on my chest'. Over the past 1 week has been progressive and yesterday was constant. No relieveing or aggrevating factors. No sob/sweating/nausea/vomitming. Never smoker. Drinks 2 glasses of vine with dinner. Family hx with fathers side
having strong cardiac hx.
In the ER. Hemodynamically stable. Trop negative. EKG nonishemic. Evaled by cards does not believe this is ACS. Did have elevated liver enzymes (AST 500's, ALT 200's). Abdominal ultrasound with evidence of acute findings. Acute hep panel negative.
Medical History
Past Medical History
Past Medical History: Reports None
Past Surgical History: Reports None
Social History
Tobacco: Non-smoker
Alcohol: Daily
Family History
Family History: Not pertinent
Allergies / Home Medications
Allergies reflects when Allergies were last updated in [facility].
Home Medications with original date entered in [facility]
Allergy/Medication List:
Allergies
Allergy/AdvReac Type Severity Reaction Status Date / Time
No Known Allergies Allergy Verified 08/04/25 00:57
Home Medications
omega-3 acid ethyl esters 1 gram capsule 1 g PO BID Supplement 08/04/25
rosuvastatin 20 mg tablet (Crestor) 20 mg PO QPM High Cholesterol 08/04/25
therapeutic multivitamin 1 tab PO DAILY Supplement 08/04/25
Review of Systems
-
A 12 point ROS was completed and negative except as noted: Yes
Physical Exam
Vital Signs
Vital Signs
Temp Pulse Resp BP Pulse Ox
97.7 F 61 15 130/99 96
08/04/25 00:12 08/04/25 11:00 08/04/25 07:28 08/04/25 11:00 08/04/25 07:28
Physical Exam
General: Well Developed
Laboratory Results
-
08/04/25 00:47
08/04/25 00:47
Laboratory Results
PT Cancelled 08/04/25 10:35
INR Cancelled 08/04/25 10:35
APTT Cancelled 08/04/25 13:15
Total Bilirubin 0.9 mg/dl (0.2-1.3) 08/04/25 00:47
AST 529 U/L (17-59) H* 08/04/25 00:47
ALT 288 U/L (0-50) H 08/04/25 00:47
Alkaline Phosphatase 90 U/L (38-126) 08/04/25 00:47
Troponin I 0.016 ng/ml 08/04/25 06:31
Lipase 263 U/L (23-300) 08/04/25 00:47
Impression/Plan
-
NAD
Scleral Anicteric
MMM
No JVD
CTABL
RRR, S1/S2
Soft, NT, Mild distention, BS+
Warm, Dry
AAOx3
Calm
Transaminitis
With normal Bili less likely anatomical abnormality like stricture. suspect related to alcohol due to AST/ALT ratio. Cannot exclude fatty liver but this would have been noted on ultrasound. Cannot exclude autoimmune hepatitis.
MRCP
GI consult
Avoid hepatoxins
Avoid alcohol
Hold crestor
Diarrhea/loos stool
Chekc stool studies
Alcohol use without disorder
Drinks 2-3 glasses daily x5days a week
Discuss abstinence in the setting of elevated LFT's
HLD
Hold statin
Informed hime that he would need to repeat LFT's in 4-6weeks with PCP prior to resuming
[2025-08-04] MEDS: FOLVITE 1 MG PO (13:24)
[2025-08-04] MEDS: VITAMIN B1 100 MG PO (13:24)
[2025-08-04] MEDS: LOVENOX 40 MG SC (18:00)
[2025-08-05 03:27] VITALS: BP 118/81
[2025-08-05 04:42] VITALS: BP 118/81
[2025-08-05 06:16] LABS: Hematocrit 42.7 % (39.0-52.0); Hemoglobin 15.7 g/dL (13.0-18.0); Mean Corp Hgb Conc. 36.8 g/dL (33.0-37.0); Mean Corpuscular Volume 84.6 fL (80.0-94.0); Platelet Count 178 10^3/uL (130-400); Red Cell Dist. Width 11.2 % (11.5-14.5)
[2025-08-05 06:37] LABS: ALT (SGPT) 301 U/L (0-50); AST (SGOT) 148 U/L (17-59); Albumin 4.5 g/dl (3.5-5.0); Alkaline Phosphatase 92 U/L (38-126); Blood Urea Nitrogen 16 mg/dl (9-20); Calcium 9.8 mg/dl (8.4-10.2); Carbon Dioxide 30 mmol/L (22-30); Chloride 104 mmol/L (98-107); Estimated Creatinine Clearance 75 ml/min; Glucose 94 mg/dl (70-99); Potassium 4.1 mmol/L (3.5-5.1); Sodium 136 mmol/L (135-145); Total Protein 7.3 g/dl (6.3-8.2); eGFR > 60.00
[2025-08-05 07:00] VITALS: BP 125/85
[2025-08-05] MEDS: VITAMIN B1 100 MG PO (09:03)
[2025-08-05] MEDS: FOLVITE 1 MG PO (09:03)
[2025-08-05] MEDS: PROTONIX IV 40 MG IV (09:03)
[2025-08-05] MEDS: NSS (PRESERVATIVE FREE) 10 ML IV (09:04)
--- NOTE | 2025-08-05 09:32 | W.PN.GI.CBS2 ---
Today's Communication / Plan
-
Await MRI/MRCP r/o CBD stone
Pain free now
LFTs improving, reversal of AST/ALT ratio noted. Initial numbers suggestive of EtOH and we advised cutting back
Hep A IgM negative, no further diarrhea
If MRI negative, advance diet
If MRI positive will arrage ERCP
Assessment / Plan
-
Summary: 50yo presents with chest/neck pain after eating thanksgiving dinner. Normal CBC. Bili 0.9, AST 529, ALT 288, alk phos 90, normal lipase and peak troponin 0.018. Hepatitis panel neg. He has been seen by cardiology who suspected non cardiac
etiology and asked to see for GI cause. US - no evidence of cholelithiasis, gallbladder wall thickening or biliary tract dilatation. Negative sonographic Zimmerman's sign. Last LFT's in [facility] 2019 normal. In review with patient he admits to some chronic
bowel issue with no stool for several days then diarrhea. He completed colonoscopy in 2023 with HP and TA polyp and diverticulosis and has consulted with a stars specialist without improvement of symptoms. He admits to some GERD symptoms and wt gain
with bloating but otherwise denies dysphagia, nausea, vomiting, or bleeding. No hx EGD in past. No NSAID use. + ETOH use 2-3 glasses of wine about 5 days per week.
08/04 US- Normal GB. No GS. No GBWT
Impression:
CP/epigastric pain
Abnl LFTs. AST 529, ALT 288 on admission
ETOH use 2-3 drinks about 5 days per week
hypercholesterolemia on daily statin
Loose stools. Hep A IgM negative
Subjective
Subjective
Date of Service: August 05, 2025
Pain resolved. No further diarrhea so unable to give sample. Returned from MRI
Objective
Data Reviewed
Laboratory Data:
Laboratory Results
08/05/25 05:49
08/05/25 05:49
Laboratory Results
PT Cancelled 08/04/25 10:35
INR Cancelled 08/04/25 10:35
APTT Cancelled 08/04/25 13:15
Total Bilirubin 1.2 mg/dl (0.2-1.3) 08/05/25 05:49
AST 148 U/L (17-59) H 08/05/25 05:49
ALT 301 U/L (0-50) H 08/05/25 05:49
Alkaline Phosphatase 92 U/L (38-126) 08/05/25 05:49
Lipase 263 U/L (23-300) 08/04/25 00:47
Vital Signs and I&O:
Vital Signs
Temp Pulse Resp BP Pulse Ox
97.4 F 55 18 125/85 97
08/05/25 07:00 08/05/25 07:00 08/05/25 07:00 08/05/25 07:00 08/05/25 07:00
Physical Exam
Physical Exam
GI: Soft, Non Distended and Non Tender
[2025-08-05 11:00] VITALS: BP 131/92
--- NOTE | 2025-08-05 11:33 | W.PN.HOSP.TC ---
Today's Communication/Plan
-
Assessment / Plan
Assessment / Plan
NAD
Scleral Anicteric
MMM
No JVD
CTABL
RRR, S1/S2
Soft, NT, Mild distention, BS+
Warm, Dry
AAOx3
Calm
Transaminitis, numbers flipped
08/04 - AST great then ALT
08/05 - ALT great then AST
MRCP report pending
-If negative advance diet to low res
-If positive for ERCP
GI following
Avoid hepatoxins
Avoid alcohol
Hold crestor
Diarrhea/loos stool
Hep A Igm Neg
Alcohol use without disorder
Drinks 2-3 glasses daily x5days a week
Discuss abstinence in the setting of elevated LFT's
HLD
Hold statin
Informed him that he would need to repeat LFT's in 4-6weeks with PCP prior to resuming
Anticipated Discharge: > 48 hours
Subjective/Interval History
-
Date of Service: August 05, 2025
seen and exmained, diarreha and pain free. no acute overngit events
Objective Data
-
Labs:
Laboratory Results
08/05/25
05:49
WBC 5.4
Hgb 15.7
Hct 42.7
Plt Count 178
Sodium 136
Potassium 4.1
Chloride 104
Carbon Dioxide 30
BUN 16
Creatinine 1.0
Glucose 94
Calcium 9.8
Total Bilirubin 1.2
AST 148 H
ALT 301 H
Alkaline Phosphatase 92
Vital Signs:
Vital Signs
Temp Pulse Resp BP Pulse Ox
97.7 F 62 18 131/92 96
08/05/25 11:00 08/05/25 11:00 08/05/25 11:00 08/05/25 11:00 08/05/25 11:00
--- NOTE | 2025-08-05 13:29 | W.DCSUMMARY ---
Discharge Summary
Discharge Data
Date of Admission: 08/04/25
Date of Discharge: 08/05/25
-
Pending Results: No
Hospital Course
50 male with hx of HLD
Presented with chest discomfort and was evaluated by cardiology. Troponin were negative and ekg was normal without ischemic findings. For safe measures a 2d echo was obtained that showed normal size with ef of 60-65% and no changed from echo in
2017. Cardiology also recommended to that a stress test would be needed but can be completed as an outpatient with outpatient cardiology follow up. Unfortunately, noted to have liver enzymes in the 500/200 (AST/ALT) range. Abdominal ultrasound was
obtained but no acute findings. GI was consulted recommended MRCP which demonstrated moderate to severe fatty liver. No biliary pathology therefore, GI rec to advance diet and discharge home with outpatient GI follow up. Due to the elevated liver
enzymes it has been strongly encourage to avoid/abstain from alcohol and Crestor was held and is recommended to hold until liver function test return to normal with a CMP in 4-6weeks with PCP.
CXR
IMPRESSION:
No acute cardiopulmonary process.
2d echo
SUMMARY
1. Normal biventricular size and systolic function without regional wall motion abnormality. LVEF 60-65%.
2. No significant valvular disease.
3. No change compared to prior echocardiogram in 2017.
Abdominal ultrasound
IMPRESSION: No evidence of cholelithiasis, gallbladder wall thickening or biliary tract dilatation. Negative sonographic Zimmerman's sign.
Pancreas significantly obscured, most likely by overlying bowel gas.
Orbit xray
IMPRESSION:
No metallic or radiopaque foreign body superimposed on or within the orbits.
Abdominal MRI/MRCP
IMPRESSION:
1. 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
2. Mild hepatosplenomegaly.
3. Small hiatal hernia.
4. 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
More than 30 minutes spent in discharge including
Final examination of the patient
Summarizing hospital stay
Instructions for continuing care to all relevant caregivers
Preparation of discharge records, prescriptions, and referral forms
Total time spent (in minutes): 33mins
Discharge Plan
-
Patient Disposition: Home (Routine Discharge)
Discharge Diagnosis/Procedures: Transaminitis
Fatty liver
Condition: Good
Diet: As tolerated
Additional Diets: Avoid alcohol
Activity: As tolerated
Blood Work: CMP in 4-6 weeks with PCP
Activity Restrictions/Additional Instructions:
Presented with chest discomfort and was evaluated by cardiology. Troponins were negative and ekg was normal without ischemic findings. For safe measures a 2d echo was obtained that showed normal size with ef of 60-65% and no changed from echo in
2017. Cardiology also recommended to that a stress test would be needed but can be completed as an outpatient with outpatient cardiology follow up. Unfortunately, noted to have liver enzymes in the 500/200 (AST/ALT) range. Abdominal ultrasound was
obtained but no acute findings. GI was consulted recommended MRCP which demonstrated moderate to severe fatty liver. No biliary pathology therefore, GI rec to advance diet and discharge home with outpatient GI follow up. Due to the elevated liver
enzymes it has been strongly encourage to avoid/abstain from alcohol and Crestor was held and is recommended to hold until liver function test return to normal with a CMP in 4-6weeks with PCP.
CXR
IMPRESSION:
No acute cardiopulmonary process.
2d echo
SUMMARY
1. Normal biventricular size and systolic function without regional wall motion abnormality. LVEF 60-65%.
2. No significant valvular disease.
3. No change compared to prior echocardiogram in 2017.
Abdominal ultrasound
IMPRESSION: No evidence of cholelithiasis, gallbladder wall thickening or biliary tract dilatation. Negative sonographic Zimmerman's sign.
Pancreas significantly obscured, most likely by overlying bowel gas.
Orbit xray
IMPRESSION:
No metallic or radiopaque foreign body superimposed on or within the orbits.
Abdominal MRI/MRCP
IMPRESSION:
1. 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
2. Mild hepatosplenomegaly.
3. Small hiatal hernia.
4. 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
Referrals:
Juancho Patel MD [Family Provider, [facility]]
Prescriptions:
Continued
therapeutic multivitamin Tablet
1 tab PO DAILY
omega-3 acid ethyl esters 1 gram capsule
1 g PO BID
Held
rosuvastatin [Crestor] 20 mg Tablet
20 mg PO QPM
Hold Instructions: Resume on 09/16/25. hold until family medical provider recs to resume once repeat blood work (liver function test) have been completed in 4-6weeks.
Discharge Orders:
Discharge Patient (As Directed); Ordered 08/05/25
Ordered By: Murray Peters
Discharge Date and Time
Print Language: BOTSWANAN
--- NOTE | 2025-08-05 13:51 | CM ---
Chart reviewed and patient is for discharge today.
Plan; Home no needs
== END 2025-08-05 14:19 | disposition home or self-care (01) | DRG 443 ==
LOC: 3 WEST ACU 11:02
PROVIDERS: Emergency Medicine; Nurse Practitioner Adult Health; Physician Assistant; ADMITTING PHYSICIAN Hospitalist; CONSULT PHYSICIAN Specialist; CONSULT PHYSICIAN Student in an Organized Health Care Education/Training Program; EMERGENCY PHYSICIAN Emergency Medicine; FAMILY PHYSICIAN Family Medicine
DX: K76.0 Fatty (change of) liver, not elsewhere classified (principal); R74.01 Elevation of levels of liver transaminase levels; R07.89 Other chest pain; E78.00 Pure hypercholesterolemia, unspecified; F10.90 Alcohol use, unspecified, uncomplicated; Z86.0100 Personal history of colon polyps, unspecified; Z79.899 Other long term (current) drug therapy
CPT/HCPCS: 70030; 71046; 74183; 76700; 80053; 82784; 83516; 83690; 84484; 85025; 85027; 85610; 85730; 86231; 86705; 86706; 86709; 86803; 87340; 93005; 93306; 94760; 96365; 96366; 96375; 99285; A9575